=== PATIENT | male | born 1980 | race Caucasian/White ===

== ENCOUNTER → 2020-02-03 21:33 | Emergency (ER) | payer SELFPAY ==
--- NOTE | 2020-02-03 22:17 | PC.NURSE ---
CALLED PATIENT NO RESPONSE
--- NOTE | 2020-02-03 22:28 | PC.NURSE ---
CALLED PATIENT NO RESPONSE
== END ==
DX: Z04.9 Encounter for examination and observation for unspecified reason (principal)